=== PATIENT | female | born 1970 | race Caucasian/White ===

== ENCOUNTER 2016-04-17 07:43 | Inpatient (IN) | payer OTHER ==
--- NOTE | 2016-04-07 13:34 | HP ---
Admitting History and Physical - Primary Care Physician PCP: Lalit Flowers - Admission Chief Complaint: High risk breast cancer History of Present Illness: 45 year old premenapausal female of Ashkenazi decent with strong family H/O breast cancer Recent MRi breast 11/2015 showed couple areas of suspicion left breast 3:00 and 6:00 The 3:00 biopsy showed a radial scar and and6:00 showed fibrocystic changes. TyrLyks cuzick version 7 showed 43.85 life time risk breast cancer review of her pathology showed both area to be radial scars and undderwent wide excisions of both areas showing PASH and columnar cell changes. She is due for mammogram mar 2016. History Source: Patient Limitations to Obtaining History: No Limitations - Past Medical History Pulmonary: Yes: Asthma Gastrointestinal: Yes: Irritable Bowel Disease - Past Surgical History Past Surgical History: Yes: Appendectomy (2000), Cholecystectomy (2006) Additional Past Surgical History: ganglionic cyst 2014 - Smoking History Smoking history: Never smoked Have you smoked in the past 12 months: No - Alcohol/Substance Use Hx Alcohol Use: No Home Medications - Allergies Allergies/Adverse Reactions: Allergies Allergy/AdvReac Type Severity Reaction Status Date / Time No Known Allergies Allergy Verified 04/07/16 13:35 - Home Medications Home Medications (free text): ventolin,flovent,linzess Family Disease History - Family Disease History Family Disease History: CA: Grandparent (mat GM breast ca 57), Mother (Breast ca40 51) Physical Examination Constitutional: Yes: Well Nourished, No Distress Breast(s): Yes: Other (B cup breasts no nipple discharge healed incision left breast no signs of hematoma infection or palpable masses, no adenopathy) Problem List - Problems (1) At high risk for breast cancer Code(s): Z91.89 - OTH PERSONAL RISK FACTORS, NOT ELSEWHERE CLASSIFIED Assessment/Plan Bilateral total mastcetomies with implant alloderm reconstruction
[2016-04-08 16:16] VITALS: BMI 26.6
[2016-04-17] MEDS ORDERED: LIDOCAINE 1%-EPI 1:100,000 30 ML MDV IJ ONE (08:42)
[2016-04-17] MEDS ORDERED: GENTAMICIN SO4 80 MG/2 ML VIAL ONE (08:42)
[2016-04-17] MEDS ORDERED: ceFAZolin SODIUM 1 GM VIAL ONE ×3 (08:42→14:51)
[2016-04-17] MEDS ORDERED: PROPOFOL 20 ML ONE (09:07)
[2016-04-17] MEDS ORDERED: ROCURONIUM BROMIDE 50 MG/5 ML VIAL ONE ×2 (09:07→11:55)
[2016-04-17] MEDS ORDERED: LIDOCAINE HCL/PF 2% SDV 5ML VIAL ONE (09:08)
[2016-04-17] MEDS ORDERED: BUPIVACAINE HCL/PF 2.5 MG/ML - 30 ML VIAL IJ ONE (09:08)
[2016-04-17] MEDS ORDERED: MIDAZOLAM HCL 2 MG/2 ML SINGLE DOSE VIAL ONE (09:13)
[2016-04-17] MEDS ORDERED: DEXAMETHASONE SOD PHOSPHATE/PF 10 MG/ML SDV ONE (09:13)
[2016-04-17] MEDS ORDERED: DEXAMETHASONE SOD PHOSPHATE 4 MG/1 ML VIAL ONE (10:40)
[2016-04-17] MEDS ORDERED: KETOROLAC TROMETHAMINE 30 MG/1 ML VIAL ONE (10:40)
[2016-04-17] MEDS ORDERED: ONDANSETRON 4 MG/2 ML VIAL ONE (10:40)
[2016-04-17] MEDS ORDERED: HYDROmorphone HCL/PF 1 MG/ML VIAL (FOR PYXIS CHARGING ONLY) ONE (10:49)
[2016-04-17] MEDS ORDERED: ONDANSETRON 4 MG/2 ML VIAL IVPUSH PRN (10:53)
[2016-04-17] MEDS ORDERED: PROMETHAZINE HCL 25 MG/1 ML VIAL IVPUSH PRN (10:53)
[2016-04-17] MEDS ORDERED: HYDROmorphone *PCA* 10MG/50ML DISP.SYRIN PCA SCH (11:00)
[2016-04-17] MEDS ORDERED: LACTATED RINGERS SOLUTION 1,000 ML IV SCH (11:00)
[2016-04-17] MEDS ORDERED: ePHEDrine SULFATE 50 MG/1 ML AMPULE ONE (11:04)
[2016-04-17] MEDS ORDERED: GLYCOPYRROLATE 0.2 MG/1 ML VIAL ONE (12:55)
[2016-04-17] MEDS ORDERED: NEOSTIGMINE METHYLSULFATE 0.5 MG/ML - 10 ML MDV ONE (12:55)
[2016-04-17] MEDS ORDERED: ZOLPIDEM TARTRATE 5 MG TABLET PO PRN (13:02)
[2016-04-17] MEDS ORDERED: ONDANSETRON 4 MG/2 ML VIAL IVPB PRN (13:02)
[2016-04-17] MEDS ORDERED: ACETAMINOPHEN 325 MG TABLET (FP) PO PRN (13:02)
[2016-04-17] MEDS ORDERED: DEXTROSE 5%-0.45% SALINE 1,000 ML IV SCH (13:15)
[2016-04-17] MEDS ORDERED: HYDROmorphone *PCA* 10MG/50ML DISP.SYRIN PCA ONE ×2 (13:19→15:01)
[2016-04-17] MEDS ORDERED: FAMOTIDINE 20 MG/50 ML IVPB 50 ML IVPB ONE ×2 (14:32→14:41)
[2016-04-17] MEDS ORDERED: FAMOTIDINE 20 MG PREMIXED IVPB IVPB ONE (14:35)
[2016-04-17] MEDS ORDERED: ceFAZolin SODIUM 1 GM VIAL IVPB ONE (15:01)
[2016-04-17] MEDS: CEFAZOLIN 1 GM/D5W 50 ML IVPB SCH ×2 (15:33→21:06)
--- NOTE | 2016-04-17 21:16 | OP ---
DATE OF OPERATION: 04/17/2016 PREOPERATIVE DIAGNOSIS: High risk for breast cancer. POSTOPERATIVE DIAGNOSIS: High risk for breast cancer. PROCEDURE: Bilateral total nipple-sparing mastectomies with an inframammary approach with bilateral direct implant reconstruction with AlloDerm. ANESTHESIA: General endotracheal anesthesia. SURGEON: Anne Marie Flowers MD COMPLIANCE AUDITOR: PÉREZ Dos Santos SURGEON FOR BILATERAL IMPLANT RECONSTRUCTION: Anne Marie Cagle MD CABLE TELEVISION TECHNICIAN: Lore. COMPLICATIONS: None. INDICATIONS Briefly, the patient is a 45-year-old G5, P3 premenopausal white female with Ashkenazi Caodaism heritage. She has a strong family history with a mother who had breast cancer at age 40 and at age 51 of metastatic disease. Her maternal grandmother from breast cancer at age 57. The patient herself underwent genetic testing and was negative. She does have a history of an MRI finding in the left breast 3 o' clock and 6 o' clock positions and these are felt to be suspicious and MRI biopsy showed radial scar and fibrocystic change. 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 The patient had a calculated [facility] lifetime risk of breast cancer at 44% with a Angelica lifetime risk of 24%. She was counseled as to risk reduction strategies, but decided that she wanted to undergo prophylactic risk reduction surgery. The patient understood all risks and complications of the surgery including risks of skin flap, necrosis, nipple loss, hematoma, infection. She is well aware of the loss of sensation and animation which occurs after these procedures. She was seen by our plastic surgeon and understood the direct implant reconstruction technique and scheduled surgery. She was brought in for the procedure on April 17, 2016. In the holding area, site verification was made and informed consent was obtained. She was marked preoperatively by the plastic surgeon and did sign consent for the nipple sparing registry. DESCRIPTION OF PROCEDURE: She was brought into the operating room and laid on the OR table in the supine position. Venodynes were placed on the lower extremities. She received 2 g of Ancef prior to incision. Both breast were sterilely prepped and draped in the usual fashion. Inframammary incisions were marked out bilaterally, about 9 cm in length in the inframammary fold symmetrically bilaterally. The left mastectomy was first performed. Incision was made and the ski edges were everted. The breast was retracted inferiorly using Belknap clamps. The skin flap was raised using the Peak radiofrequency device superiorly to the level of the clavicle, medially to the level of the sternum, and laterally to the level of the latissimus and inferiorly below the level of the inframammary fold. The breast was taken down off of the pectoralis major muscle from inferomedial to superolateral and completely removed intact. It oriented with a long lateral and short superior suture and weighed to allow for appropriate cosmetic result. Skin flaps were trimmed for good cosmetic result. Hemostasis was achieved using electrocautery and the wound was copiously irrigated with warm sterile saline. At this point, the right mastectomy was approached. Again, an inframammary incision was made about 9 cm in length symmetrically to the left incision. Again, the skin edges were everted and the breast was retracted inferiorly using Belknap clamps. The skin flap was raised using the Peak radiofrequency device superiorly to the level of the clavicle, medially to the level of the sternum, laterally to the level of the latissimus, inferiorly below the level of the inframammary fold. The breast was taken down off the pectoralis major muscle from inferomedial superolateral and completely removed intact. Again, it was oriented with a long lateral and short superior suture and weighed to allow for appropriate cosmetic result. Skin flaps were trimmed for good cosmetic result. Retroareolar biopsies were taken underneath each nipple areolar complex and sent for frozen section and came back negative, so both nipples were spared. At this point, Dr. Cagle became the primary surgeon and bilateral direct implant reconstructions were performed. AlloDerm was sutured into the inferolateral aspects of both pectoralis major muscles to allow for the direct implant reconstructions. Two Sanju drains were placed around each implant, brought through a separate stab incisions on the lateral skin flap and secured in place using 3-0 nylon suture. The drains were placed on JAMI self-bulb suction. Wounds were all closed by Plastic Surgery using interrupted 3-0 deep dermal Vicryl suture with a running 4-0 subcuticular PDS suture. Mastisol strips were applied over the wound with compressive dressing placed over this. She was placed in a surgical bra postoperatively. The patient did have a prepectoral nerve block preoperatively for postoperative pain control but will also have a OPERATIONS CHIEF postoperatively for pain control. She was extubated, brought to the postanesthesia care in stable condition. All sponge and needle counts were correct at the end of the case. Estimated blood loss was about 100 mL and she was hemodynamically stable throughout. ANNE MARIE FLOWERS M.D. [id number]
[2016-04-18] MEDS: CEFAZOLIN 1 GM/D5W 50 ML IVPB SCH ×4 (02:30→20:38)
[2016-04-18 08:42] LABS: MCH 31.1 pg (25.7-33.7); MCHC 32.8 g/dl (32.0-36.0); MEAN CELL VOLUME 94.8 fl (80-96); MEAN PLT VOLUME 8.6 fl (7.5-11.1); PLATELET COUNT 273 K/MM3 (134-434); RDW 13.1 % (11.6-15.6); WHITE BLOOD COUNT 11.1 K/mm3 (4.0-10.0)
[2016-04-18] MEDS ORDERED: DOCUSATE SODIUM 100 MG CAPSULE (FP) PO PRN (09:29)
--- NOTE | 2016-04-18 09:36 | PN ---
Progress Note, Physician Chief Complaint: S/P bilateral mastectomy with reconstruction POD#1 History of Present Illness: Patient seen this am and reports that the PAYER SPECIALIST is making her nauseous and she would rather take only tylenol. - Current Medication List Current Medications: Active Medications Acetaminophen (Tylenol -) 650 mg PO Q4H PRN PRN Reason: FEVER Fentanyl (Sublimaze Injection -) 50 mcg IVPUSH [id number] PRN PRN Reason: PAIN Stop: 04/20/16 10:54 Hydromorphone HCl (Dilaudid Card Scraper -) 0 mg PAYER SPECIALIST PAYER SPECIALIST SULEMAN PRN Reason: Protocol Stop: 04/24/16 10:55 Last Admin: 04/17/16 15:33 Dose: Not Given Lactated Ringer's (Lactated Ringers Solution) 1,000 mls @ 125 mls/hr IV ASDIR SULEMAN Last Admin: 04/17/16 15:33 Dose: Not Given Cefazolin Sodium (Ancef 1 Gm Premixed Ivpb -) 50 mls @ 100 mls/hr IVPB Q6H-IV SULEMAN Stop: 04/24/16 14:59 Last Admin: 04/18/16 02:30 Dose: 100 mls/hr Dextrose/Sodium Chloride (D5-1/2ns -) 1,000 mls @ 100 mls/hr IV ASDIR SULEMAN Last Admin: 04/17/16 15:33 Dose: Not Given Non-Formulary Medication (Linaclotide [Linzess]) 290 mcg PO DAILY SULEMAN Ondansetron HCl (Zofran Injection) 4 mg IVPB Q6H PRN PRN Reason: NAUSEA AND/OR VOMITING Last Admin: 04/17/16 20:00 Dose: 4 mg Zolpidem Tartrate (Ambien -) 5 mg PO HS PRN PRN Reason: Insomnia - Objective Vital Signs: Vital Signs Temperature 98.4 F 04/18/16 06:00 Pulse Rate 82 04/18/16 06:00 Respiratory Rate 19 04/18/16 06:00 Blood Pressure 95/52 04/18/16 06:00 O2 Sat by Pulse Oximetry (%) 97 04/18/16 06:52 Constitutional: Yes: Well Nourished Breast(s): Yes: Other (Bilateral flaps with good color and mild ecchymosis. Nipple/areola complex with good color. JAMI x 4 with serosanginous discharge.) Labs: CBC, BMP 04/18/16 07:00 Problem List - Problems (1) At high risk for breast cancer Assessment/Plan: Plan: OOB today with assistance DC PAYER SPECIALIST Make appt to see Dr. Cagle and Dr. Flowers next week. Plan for discharge in am. Code(s): Z91.89 - OTH PERSONAL RISK FACTORS, NOT ELSEWHERE CLASSIFIED
[2016-04-18] MEDS ORDERED: PATIENT'S OWN MEDICATION (NON-FORMULARY) (Linaclotide [Linzess] 290 MCG) PO SCH (10:00)
[2016-04-18] MEDS ORDERED: OXYCODONE/APAP 5/325MG COMBO TABLET ONE ×2 (10:03→12:22)
--- NOTE | 2016-04-18 12:12 | PN ---
Progress Note (short form) - Note Progress Note: 45F POD1 s/p b/l prophylactic mastectomy with reconstruction under GA-ETT with dilaudid BISQUE GRADER for post-operative pain relief. Pt states that the BISQUE GRADER was making her nauseous, and it has been d/c'd. She reports improvement since that time. She states that her pain is well controlled, reports no anesthetic complications , and AVSS.
[2016-04-18] MEDS: OXYCODONE/APAP 5/325MG COMBO TABLET PO PRN (19:26)
[2016-04-19] MEDS: OXYCODONE/APAP 5/325MG COMBO TABLET PO PRN ×3 (00:14→11:57)
[2016-04-19] MEDS: CEFAZOLIN 1 GM/D5W 50 ML IVPB SCH ×2 (03:20→08:42)
[2016-04-19 05:40] VITALS: BP 107/59; PULSE 86; TEMP 98.3
--- NOTE | 2016-04-19 11:41 | DS ---
Physical Examination Vital Signs: Vital Signs Temperature 98.3 F 04/19/16 05:00 Pulse Rate 86 04/19/16 05:00 Respiratory Rate 16 04/19/16 07:54 Blood Pressure 107/59 04/19/16 05:00 O2 Sat by Pulse Oximetry (%) 96 04/19/16 07:54 Constitutional: Yes: Well Nourished, No Distress Wound/Incision: Yes: Dressing Dry and Intact (Skin flaps and nipples viable. Jps functioning, serosanguineous effluent.) Labs: CBC, BMP 04/18/16 07:00 Discharge Summary Reason For Visit: FAMILY HX OF BREAST CANCER Current Active Problems At high risk for breast cancer (Acute) Procedures: Principal: Bilateral prophylactic nipple sparing mastectomies with direct implant reconstruction Hospital Course: Patient stable, hospital course uneventful Condition: Good - Instructions Diet, Activity, Other Instructions: BREAST SURGERY INSTRUCTIONS Jorge A Flowers M.D., ILA Flowers M.D., ILA Leigh M.D., FACS 1. Please call the office at to make a follow up appointment with your surgeon. This number can be also used for any urgent issues you may have. 2. Call us immediately if any of the following occur: *Bleeding from the incision or drain site (a small amount is normal) *Fever or chills *Redness and worsening tenderness around the surgical site *Drainage of pus or fluid from the incision or drain site 3. You may change the surgical dressing two (2) days after your surgery, and may shower then. If you have drains, you may shower after they have been removed, until then take a sponge bath. 4. It is normal for there to be some bruising and tenderness around the surgical site, and the breast may also be firm in this area. 5. Please wear a comfortable bra (sports or surgical bra) all day and all night until your first follow-up visit with your surgeon. 6. The pain medicine you have been prescribed may make you constipated; make sure you drink plenty of water. You may use an over the counter laxative if needed. 7. You may resume your normal diet after surgery, although you may want to avoid rich foods for the first twenty-four (24) hours after surgery. Alcoholic drinks should be avoided while taking the prescribed pain medicine. 8. You may resume normal activities as long as there is no discomfort, but do not do upper body exercises until after your follow-up appointment. Do not lift anything heavier than a large phone book. You may resume driving once you have stopped taking the prescribed pain medicine and feel comfortable doing arm movements. Disposition: HOME - Home Medications Comprehensive Discharge Medication List: Ambulatory Orders Linaclotide [Linzess] 290 mcg PO DAILY 04/08/16
--- NOTE | 2016-04-21 13:51 | OP ---
DATE OF OPERATION: 04/17/2016 PROCEDURE: Bilateral implant and AlloDerm reconstruction. SURGEON: Anne Marie Cagle MD IT HELP DESK ANALYST SURGEON: Lore Corrales PA-C PREOPERATIVE DIAGNOSES: 1. Bilateral acquired chest wall deformity status post bilateral mastectomy (611.89). 2. Personal history of genetic carcinoma. POSTOPERATIVE DIAGNOSES: 1. Bilateral acquired chest wall deformity status post bilateral mastectomy (611.89). 2. Personal history of genetic carcinoma. PROCEDURE: 1. Right immediate breast reconstruction utilizing immediate insertion of silicone breast implant and AlloDerm reconstruction. 2. Left immediate breast reconstruction utilizing immediate insertion of silicone breast implant and AlloDerm reconstruction. 3. Intravenous injection of indocyanine green dye and intraoperative diagnostic evaluation of non-coronary intraoperative fluorescein vascular angiography x 2. OPERATIVE PROCEDURE IN DETAIL: The patient was taken to the operating room. After induction of general anesthesia in the supine position, both arms were extended and padded. Venodyne boots were placed. The entire chest wall was painted with ChloraPrep solution over its entire extent, and sterile drapes were placed in the usual fashion. The markings, which had been made with the patient in the standing position preoperatively, were re-outlined with the patient's knowledge. A time-out procedure was performed. Attention was turned by Dr. Flowers to the mastectomies. Bilateral inframammary incisions were made, and Dr. Flowers performed mastectomies. This will be dictated under separate cover. Upon completion of the mastectomies, the wounds were copiously irrigated and attention was turned to the right breast. A subpectoral dissection was begun on the right breast, superiorly from the second rib, medially to the sternal fibers, and down to the inframammary fold, elevating the pectoralis major muscle from its insertion. At this point, an 8.0 x 16.0 AlloDerm Contour perforated medium sheet was brought into the field and sutured superiorly along the pectoralis major muscle after rehydration. This was carried along the lateral mammary fold and down the side of the breast reconstruction. At this point, a Natrelle INSPIRA Cohesive implant with 520 mL volume was chosen. The left breast tissue removed was 454 gm and the right breast tissue removed was approximately 335 gm. This implant was placed and then sutured with 3-0 Vicryl suture, continued along the inframammary fold, completely covering the implant itself. The exact same procedure was carried out symmetrically on the opposite breast, also placing a Natrelle INSPIRA Cohesive implant in the same subpectoral pocket. Good symmetry was seen in the sitting position. After the implants were in place, the patient was injected with 10 mL of indocyanine green dye and the SPY imaging system was brought into the field. The skin flowed to the right and left breasts and the nipple-areolar complex, and the entire skin flaps were evaluated and seen to be viable with good blood flow. Two Elijah-Marks drains were brought out through separate stab wounds laterally. The Smart Infuser pump catheter was inserted medially and into the subpectoral position. Both wounds were closed symmetrically using 3-0 PDS suture on the deep tissue, 3-0 in a deep dermal fashion, and 4-0 in a subcuticular fashion. Both wounds were dressed sterilely with Mastisol and Steri-Strips with a surgical bra and a compression strap. The patient tolerated the procedure well. She was awakened, extubated and transferred to the recovery room in satisfactory condition. The under water assistant was present during the entire portion of the operation and closure. ANNE MARIE CAGLE M.D. [id number]
--- NOTE | 2016-04-21 15:14 | PATH ---
Surgical Pathology Report Patient Name: MINNA GAN [facility]. Rec. #: [id number] /Age/Gender: 1970 (Age: 45) / F Account: [id number] Location: [facility] MED-SURG Taken: 04/17/2016 Received: 04/17/2016 Reported: 04/21/2016 Physicians: Lalit Flowers M.D. Specimen(s) Received A: RIGHT RETROAREOLAR BIOPSY. FS B: LEFT RETROAREOLAR BIOPSY. FS C: RIGHT MASTECTOMY D: LEFT MASTECTOMY Clinical History B/L prophylactic mastectomy Intraoperative Consult Diagnosis A.Left retroareolar biopsy, frozen section: Negative for malignancy. B. Right retroareolar biopsy, frozen section: Negative for malignancy. Ar. Sincere M.D. , 04/17/16. Final Diagnosis A. RETROAREOLA, RIGHT, BIOPSY (FS): BENIGN BREAST TISSUE; NEGATIVE FOR MALIGNANCY. B. RETROAREOLA, LEFT, BIOPSY (FS): BENIGN BREAST TISSUE; NEGATIVE FOR MALIGNANCY. C. BREAST, RIGHT, NIPPLE-SPARING MASTECTOMY: BENIGN BREAST TISSUE SHOWING FIBROCYSTIC CHANGES. D. BREAST, LEFT, NIPPLE-SPARING MASTECTOMY: BENIGN BREAST TISSUE SHOWING PRIOR BIOPSY SITE CHANGES. Electronically Signed Patricia Post M.D. Gross Description A. Received fresh for frozen section labeled "left retroareolar biopsy," is a 1.3 x 1.0 x 0.2 cm portion of red and yellow soft tissue. A frozen section is performed on the specimen. The frozen section residue is entirely submitted in one cassette. B. Received fresh for frozen section labeled "right retroareolar biopsy," is a 1.7 x 1.2 x 0.3 cm portion of red and yellow soft tissue. A frozen section is performed on the specimen. The frozen section residue is entirely submitted in one cassette. C. Received in formalin, labeled "right mastectomy," is a 193 gram, 14.5 x 13.5 x 2.5 cm. right mastectomy specimen with a short suture marking the superior aspect and a long suture marking the lateral aspect of the specimen, per the surgeon. There is no skin or nipple present. The deep margin is inked black and the anterior soft tissue margin is inked blue. The specimen is serially sectioned from lateral to medial. Sectioning reveals foci of white fibrous tissue. No definitive masses are identified. Electrical Assembler sections are submitted in 13 cassettes as follows: 1-3-upper outer quadrant; 4-6-lower outer quadrant; 7-9-upper inner quadrant; 10-11-lower inner quadrant; 12-anterior soft tissue margin; 13-deep margin. Time to formalin fixation: 6 minutes Total formalin fixation time: Approximately 29 hours. D. Received in formalin, labeled "left mastectomy," is a 413 gram, 17.0 x 16.0 x 3.1 cm. left mastectomy specimen with a short suture marking the superior aspect and a long suture marking the lateral aspect of the specimen, per the surgeon. There is no skin or nipple present. The deep margin is inked black and the anterior soft tissue margin is inked blue. The specimen is serially sectioned from medial to lateral. Sectioning reveals a previous biopsy cavity spanning the upper inner quadrant (UIQ) and upper outer quadrant (UOQ). The cavity is surrounded by focally firm fibrous tissue. The remaining breast parenchyma displays multifocal white fibrous tissue. No definitive masses are identified. Electrical Assembler sections are submitted in 20 cassettes as follows: 0-9-bfwbfztt biopsy cavity from UOQ; 1-9-pziwyerd biopsy cavity from UIQ; 2-41-gifjrkfejf UOQ tissue; 51-34-rvrdpnlfen UIQ tissue; 13-15-lower outer quadrant; 16-18-lower inner quadrant; 19-anterior soft tissue margin; 20-deep margin. Time to formalin fixation: 40 minutes Total formalin fixation time: Approximately 29 hours. 04/17/201604/17/2016
== END 2016-04-19 12:05 | disposition home or self-care (01) | DRG 585 ==
LOC: FM/S 07:43
PROVIDERS: ADMIT Surgery Surgical Oncology; ATTEND Surgery Surgical Oncology
PROC: 0HTV0ZZ Resection of Bilateral Breast, Open Approach (ICD-10-PCS; principal; 2016-04-17 10:48)
PROC: 0HUV0JZ Supplement Bilateral Breast with Synthetic Substitute, Open Approach (ICD-10-PCS; 2016-04-17 10:48)
DX: Z40.01 Encounter for prophylactic removal of breast (principal); J45.909 Unspecified asthma, uncomplicated; K58.8 Other irritable bowel syndrome
CPT/HCPCS: 36415; 84703; 85027; 88307-TC; 88331-TC; 94010; 94760

== ENCOUNTER 2016-09-03 07:26 | Day surgery (SDC) | payer OTHER ==
[2016-08-28 09:55] VITALS: BMI 26.6
[2016-09-03] MEDS ORDERED: ceFAZolin SODIUM 1 GM VIAL ONE (07:58)
[2016-09-03] MEDS ORDERED: BUPIVACAINE HCL/PF 2.5 MG/ML - 30 ML VIAL IJ ONE ×2 (07:58→08:33)
[2016-09-03] MEDS ORDERED: GENTAMICIN SO4 80 MG/2 ML VIAL ONE (07:58)
[2016-09-03] MEDS ORDERED: LIDOCAINE 1%/EPI 1:100000 (20 ML MULTI DOSE VIAL) ONE ×2 (07:59→08:12)
[2016-09-03] MEDS ORDERED: EPINEPHrine/PF 1 MG/1 ML (1:1,000) AMPULE ONE (08:11)
[2016-09-03] MEDS ORDERED: LIDOCAINE HCL 1%, 10 MG/ML (20ML VIAL) ONE (08:11)
--- NOTE | 2016-09-03 08:32 | HP ---
History & Physical Update - History History: No Change - Physical Physical: No Change - Assessment Assessment: No Change - Plan Plan: No Change (Initial H&P was completed on 08/19/2016 and is located in patient's paper chart. This is my first time meeting the patient. I informed her that I will be assisting Dr. Cagle with todays procedure. Patient is fine with it.)
[2016-09-03] MEDS ORDERED: DEXAMETHASONE SOD PHOSPHATE/PF 10 MG/ML SDV ONE (08:33)
[2016-09-03] MEDS ORDERED: MIDAZOLAM HCL 2 MG/2 ML SINGLE DOSE VIAL ONE (08:33)
[2016-09-03] MEDS ORDERED: CEFAZOLIN 1 GM in DEXTROSE 5%-WATER - 50 ML IVPB ONE (08:34)
[2016-09-03] MEDS ORDERED: ePHEDrine SULFATE 50 MG/1 ML AMPULE ONE (09:00)
[2016-09-03] MEDS ORDERED: SUCCINYLCHOLINE CHLORIDE 200 MG/10 ML VIAL ONE (09:01)
[2016-09-03] MEDS ORDERED: ROCURONIUM BROMIDE 50 MG/5 ML VIAL ONE ×2 (09:01)
[2016-09-03] MEDS ORDERED: PROPOFOL 20 ML ONE ×2 (09:01)
[2016-09-03] MEDS ORDERED: HYDROmorphone HCL/PF 1 MG/ML VIAL (FOR PYXIS CHARGING ONLY) ONE (09:06)
[2016-09-03] MEDS ORDERED: SCOPOLAMINE HYDROBROMIDE 1 PATCH PATCH.TD72 ONE (09:15)
[2016-09-03] MEDS ORDERED: LIDOCAINE 1%/EPI 1:100000 (20 ML MULTI DOSE VIAL) INF ONE ×2 (09:35→12:45)
[2016-09-03] MEDS ORDERED: ONDANSETRON 4 MG/2 ML VIAL IVPUSH PRN (11:05)
[2016-09-03] MEDS ORDERED: ONDANSETRON 4 MG/2 ML VIAL ONE (12:59)
[2016-09-03] MEDS: ACETAMINOPHEN 325 MG TABLET (FP) PO SCH ×3 (13:35→20:00)
[2016-09-03] MEDS: diazePAM 5 MG TABLET PO SCH ×3 (13:35→22:09)
[2016-09-03] MEDS: traMADol HCL 50 MG TABLET PO SCH ×3 (13:35→20:01)
[2016-09-03] MEDS: HYDROmorphone HCL CARPU-JECT 1 MG/1 ML DISP.SYRIN ONE ×2 (13:54→14:04)
[2016-09-03] MEDS ORDERED: HYDROmorphone HCL CARPU-JECT 1 MG/1 ML DISP.SYRIN IVPB PRN (14:03)
[2016-09-03] MEDS: HYDROmorphone HCL CARPU-JECT 1 MG/1 ML DISP.SYRIN IVPUSH ONE ×2 (14:15→15:53)
[2016-09-03] MEDS ORDERED: traMADol HCL 50 MG TABLET PO SCH (15:00)
[2016-09-03] MEDS: LACTATED RINGERS SOLUTION 1,000 ML IV SCH (15:51)
[2016-09-03] MEDS: oxyCODONE HCL 5 MG TABLET PO PRN ×2 (18:33→22:15)
[2016-09-03 22:25] VITALS: PULSE 74
[2016-09-04] MEDS: traMADol HCL 50 MG TABLET PO SCH ×3 (02:01→14:11)
[2016-09-04] MEDS: ACETAMINOPHEN 325 MG TABLET (FP) PO SCH ×3 (02:03→14:11)
[2016-09-04] MEDS: oxyCODONE HCL 5 MG TABLET PO PRN ×2 (05:49→11:42)
[2016-09-04] MEDS: diazePAM 5 MG TABLET PO SCH ×2 (05:51→14:14)
--- NOTE | 2016-09-04 07:31 | SURG ---
Surgery Lock Stitch Channeler Note Lock Stitch Channeler: Scott Banuelos PA-C Date of Service: 09/03/16 Diagnosis: Chest wall asymmetry after bilateral mastectomy, breast reconstruction with implants Procedure: Bilateral breast implant exchange, fat grafting, abdominoplasty I was present for the entirety of the operative procedure. For further detail, please refer to operative report. Visit type - Case Type Case Type: Scheduled Admission - New patient This patient is new to me today: Yes Date on this admission: 09/04/16
[2016-09-04 11:17] VITALS: BP 102/65; TEMP 97.8
[2016-09-04] MEDS: LACTATED RINGERS SOLUTION 1,000 ML IV SCH (11:41)
--- NOTE | 2016-09-04 12:33 | PN ---
Progress Note, Physician Chief Complaint: s/p bilateral tissue transfer to breast, reconstruction and abdominoplasty under general anesthesia History of Present Illness: post op day one, bilateral pecs block for post op pain control - Current Medication List Current Medications: Active Medications Acetaminophen (Tylenol -) 650 mg PO Q6H [facility] Last Admin: 09/04/16 08:09 Dose: 650 mg Diazepam (Valium -) 2.5 mg PO Q8H [facility] Last Admin: 09/04/16 05:51 Dose: Not Given Fentanyl (Sublimaze Injection -) 50 mcg IVPUSH [id number] PRN PRN Reason: PAIN Stop: 09/06/16 11:06 Last Admin: 09/03/16 13:29 Dose: 50 mcg Lactated Ringer's (Lactated Ringers Solution) 1,000 mls @ 125 mls/hr IV ASDIR [facility] Last Admin: 09/04/16 11:41 Dose: Not Given Oxycodone HCl (Roxicodone -) 5 mg PO Q4H PRN PRN Reason: MODERATE PAIN Last Admin: 09/04/16 05:49 Dose: 5 mg Oxycodone HCl (Roxicodone -) 10 mg PO Q4H PRN PRN Reason: SEVERE PAIN Last Admin: 09/04/16 11:42 Dose: 10 mg Tramadol HCl (Ultram -) 50 mg PO Q6H [facility] Last Admin: 09/04/16 08:09 Dose: 50 mg - Objective Vital Signs: Vital Signs Temperature 97.8 F 09/04/16 11:15 Pulse Rate 74 09/04/16 11:15 Respiratory Rate 19 09/04/16 11:15 Blood Pressure 102/65 09/04/16 11:15 O2 Sat by Pulse Oximetry (%) 93 L 09/04/16 11:15 Constitutional: Yes: Well Nourished Cardiovascular: Yes: WNL Respiratory: Yes: WNL Gastrointestinal: Yes: WNL Assessment/Plan Patient doing well, no anesthetic complications, complaining of pain in right flank, received oxycodone 20 minutes prior to interview, advised to reassess pain after addtional 20 minutes and alert nursing if pain is not adequately controlled, will consider adding muscle relaxant to adjuvant pain control. Otherwise the dept of anesthesia will sign off care at this time
[2016-09-04] MEDS ORDERED: OXYCODONE/APAP 5/325MG COMBO TABLET PO PRN (12:59)
[2016-09-04] MEDS ORDERED: diazePAM CARPU-JECT 10 MG/2 ML DISP.SYRIN IVPUSH ONE (13:20)
[2016-09-04] MEDS ORDERED: ONDANSETRON 4 MG/2 ML VIAL IVPUSH ONE (13:30)
--- NOTE | 2016-09-05 14:13 | PATH ---
Surgical Pathology Report Patient Name: MINNA GAN Med. Rec. #: [id number] /Age/Gender: 1970 (Age: 46) / F Account: [id number] Location: [facility] Taken: 09/03/2016 Received: 09/03/2016 Reported: 09/05/2016 Physicians: Jose Cagle Specimen(s) Received A: BILATERAL BREAST EXPLANTS B: ABDOMINAL WALL C: RIGHT BREAST CAPSULE Clinical History Bilateral chest wall deformity post mastectomy Final Diagnosis A. IAP DISPLAYS ANALYST, BILATERAL BREASTS, REMOVAL: TWO BREAST IMPLANTS (GROSS ONLY) B. SKIN AND SOFT TISSUE, ABDOMEN, ABDOMINOPLASTY: SUBCUTANEOUS ADIPOSE TISSUE WITH AREAS OF HEMORRHAGE, AND UNREMARKABLE SKIN. C. SOFT TISSUE, RIGHT BREAST, EXCISION: FIBROUS TISSUE WITH FOCAL FOREIGN BODY REACTION CONSISTENT WITH BREAST IMPLANT CAPSULE. Electronically Signed Ambrose Gregory M.D. Gross Description A. Received in formalin labeled "bilateral breast explant," are 2 clear, rubbery, disc-shaped objects averaging 14 cm in diameter and 4 cm in depth, consistent with breast implants. No soft tissue is present. No sections are submitted, gross only. B. Received in formalin labeled "abdominal wall 1409 g," is a 37.0 x 16.0 cm espinosa, elliptical, unoriented portion of skin excised to depth of 5.5 cm. The epidermal surface displays a focal defect. Sectioning of the underlying soft tissue reveals multiple foci of hemorrhage. No masses are identified. Mult Au Matic Operator sections are submitted in one cassette. C. Received in formalin labeled "right breast capsule," is a 1.5 x 0.5 cm espinosa, irregular, unoriented portion of fibrous tissue. The specimen is bisected and entirely submitted in one cassette. 09/04/201609/04/2016
--- NOTE | 2016-09-06 11:20 | OP ---
DATE OF OPERATION: 09/03/2016 SURGEON: Anne Marie Cagle MD WALLCOVERING HANGER SURGEON: Scott , PÉREZ PREOPERATIVE DIAGNOSES: 1. Bilateral acquired chest wall deformity status post bilateral mastectomy. 2. Asymmetry of reconstructed chest wall. 3. Mechanical complication of breast implants. POSTOPERATIVE DIAGNOSES: 1. Bilateral acquired chest wall deformity status post bilateral mastectomy. 2. Asymmetry of reconstructed chest wall. 3. Mechanical complication of breast implants. OPERATIVE PROCEDURE: 1. Right breast reconstruction utilizing other technique. 2. Left breast reconstruction utilizing other technique. 3. Right breast capsulectomy, removal and replacement of right breast implant. 4. Left breast capsulectomy, removal and replacement of left breast implant with capsulorrhaphy. OPERATIVE INDICATION: Patient is a young woman who underwent bilateral mastectomy for genetic history of breast cancer. The risks and benefits of surgical versus nonsurgical alternatives as well as the material complications of the above procedures were described to the patient on multiple occasions preoperatively. She agreed to the planned procedure. OPERATIVE PROCEDURE IN DETAIL: The patient was taken to the operating room, and after induction of general anesthesia in the supine position, the markings which were made in the standing position preoperatively for outline of the procedure were re-marked, re-measured, and confirmed. After placement of sterile drapes, timeout, and the usual preoperative course, attention was turned to the mastectomy scars. These were injected with 1% local lidocaine anesthesia with 1:100,000 epinephrine, as was the area in the lower abdomen for harvest of tissue. Attention was then turned to the chest wall. An incision was made down through skin, through the mastectomy scar of the right breast, down through the subcutaneous tissue until I got to the capsule. I then performed a capsulotomy and capsulectomy, removing portions of the capsule and sending this for pathologic diagnosis. The right breast pocket was examined and seemed to be intact, although some lateralization was noted. Attention was then turned to the left breast. An incision was made down through the skin to the subcutaneous tissue on the left breast, through the subcutaneous tissue, and also I performed a capsulotomy and capsulectomy on the left breast. This left breast showed gross asymmetry of the chest wall and required correction. A malposition of the implant showed lateralization into the axilla and required re-suturing. After injection of the lateral gutter on the left breast, using a No. 1 V-Loc suture, the repair of the lateral portion of the breast was carried out. A 3-layered multi-closure repair of the lateral portion of the gutter was accomplished in running fashion with this V-Loc suture. Once this was accomplished, attention was turned back to the other breast. Similar procedures were carried out on both breasts at this point. At this point, a trial sizer was placed into the right breast pocket of 695-mL volume. This showed good shape and contour, and wet moist dressings were placed within the breast itself. At this point, the lower abdomen was injected with 1% local lidocaine anesthesia, 1:100,000 epinephrine. Then, an incision was made according to the pattern, down through skin to the subcutaneous tissue, through the subcutaneous tissue, down to the deep fascia of the abdominal wall, and tissue was harvested for reconstructive purposes. This block of tissue was removed and transferred to the back table. Subcutaneous tissue was then washed, cleansed, prepared, and readied for reconstructive purposes. The tissue was then transferred to the right breast in the superior, medial, central, and lateral portions to correct the deformity and create the breast reconstruction, as well as the left breast asymmetrically, placing more of the tissue on the left side because of the preoperative asymmetry. The abdominal wall was repaired in multiple layers using 2-0 Vicryl sutures in the deep tissue, 3-0 in the deep dermal fascia and 4-0 in a subcuticular fashion. Attention was turned back to the breast that the 695 mL Natrelle style SCF 695-mL implant was chosen for the right breast pocket. It was then placed through the Abebe Funnel into the pocket, and the capsule was reinforced and closed using 2-0 PDS sutures in a running fashion. The deep tissue was also closed using 3-0 PDS suture in the deep dermal fashion, and 4-0 Biosyn was used to close subcuticularly on the skin. The exact same procedure was carried out symmetrically on the opposite side, placing the 695-mL implant, as was the same on the right breast. This also was closed in similar layers from the right breast, and then, patient was placed into the sitting position to see symmetry. Good shape and contour were seen. Minor adjustments were made to the tissues that were previously placed, but good symmetry was seen at the end of the procedure. All wounds were dressed sterilely with Dermabond, Steri-Strips, and a compressive dressing. She was awakened, extubated, and transferred to the recovery room in her bed. She tolerated the procedure well. ANNE MARIE CAGLE M.D. [id number]
== END 2016-09-04 16:22 | disposition home or self-care (01) ==
LOC: FASU 07:26 → EDSTATUS 08:00 → FM/S 14:58 → FASU 09-04 16:22
PROVIDERS: ATTEND Plastic Surgery
PROC: 0HRV0JZ Replacement of Bilateral Breast with Synthetic Substitute, Open Approach (ICD-10-PCS; 2016-09-03)
PROC: 0HRV07Z Replacement of Bilateral Breast with Autologous Tissue Substitute, Open Approach (ICD-10-PCS; principal; 2016-09-03 09:36)
PROC: 0HPU0JZ Removal of Synthetic Substitute from Left Breast, Open Approach (ICD-10-PCS; 2016-09-03 09:36)
PROC: 0HPT0JZ Removal of Synthetic Substitute from Right Breast, Open Approach (ICD-10-PCS; 2016-09-03 09:36)
DX: M95.4 Acquired deformity of chest and rib (principal); Z90.13 Acquired absence of bilateral breasts and nipples; N65.1 Disproportion of reconstructed breast; T85.41XA Breakdown (mechanical) of breast prosthesis and implant, initial encounter; Y83.8 Other surgical procedures as the cause of abnormal reaction of the patient, or of later complication, without mention of misadventure at the time of the procedure; Y92.89 Other specified places as the place of occurrence of the external cause
CPT/HCPCS: 84703; 88300-TC; 88302-TC; 88304-TC; 94760